=== PATIENT | male | born 1995 | race Caucasian/White ===

== ENCOUNTER 2018-09-25 13:51 | Emergency (ER) | payer OTHER ==
--- NOTE | 2018-09-25 14:01 | EDPHY ---
H & P Stated Complaint: Injury to left collerbone while skiing. Source: Patient Exam Limitations: No limitations - Personal History Current Tetanus Diphtheria and Acellular Pertussis (TDAP): Unsure - Medical/Surgical History Hx Asthma: No Hx Chronic Respiratory Disease: No Hx Diabetes: No Hx Cardiac Disease: No Hx Renal Disease: No Hx Cirrhosis: No Hx Alcoholism: No Hx HIV/AIDS: No Hx Splenectomy or Spleen Trauma: No Other PMH: Denies - Social History Smoking Status: Never smoked Time Seen by Provider: 09/25/18 13:56 HPI/ROS: HPI: This is a 22-year-old male who presents with Chief Complaint: Left shoulder/clavicle injury Location: Left shoulder/clavicle Quality: Injury Duration: 2 hr prior to arrival Signs and Symptoms: No bleeding, no radiation, no numbness, no weakness, no tingling, no incontinence, + decreased range of motion, no swelling, + pain, no fever Timing: Acute Severity: 01/21 Context: Patient is right-hand dominant, presents with complaints of falling off of a rail while snowboarding this afternoon. He reports he was wearing a helmet and did not hit his head. Denies LOC/head injury/neck pain/dizziness/ nausea/vomiting/amnesia. He reports that when he fell he landed directly onto the anterior aspect of his left shoulder. He reports that his shoulder has good range of motion but pain is increased in the left clavicle area with extension of his left arm above heart level. Patient believes that he broke his left clavicle. Patient was able to snowboard down the hill and then his friend drove him to the emergency room. [place] skin car[place] He admits to drinking alcohol and smoking marijuana joint prior to arrival with moderate relief of pain. Modifying Factors: Alcohol and marijuana with moderate relief of pain Comment: ROS: A comprehensive 10 system review of systems is otherwise negative aside from elements mentioned in the history of present illness. MEDICAL/SURGICAL/SOCIAL HISTORY: Medical history: Generally healthy. Does not take any regular medications. Surgical history: Denies Social history: Marijuana and alcohol user. Nontobacco user. CONSTITUTIONAL: Well-developed, well-nourished, young adult white male, polite and cooperative, awake and alert, no obvious distress HEENT: Atraumatic and normocephalic. NECK: supple, no midline tenderness, flexion 45 degrees, extension 45 degrees, right and left lateral flexion 45 degrees. No meningismus. Cardiovascular: Normal S1/S2, regular rate, regular rhythm, without murmur rub or gallop. PULMONARY/CHEST: Symmetrical and nontender. no crepitus. Clear to auscultation bilaterally. Good air movement. No accessory muscle usage. ABDOMEN: Soft, nondistended, nontender, no ecchymosis. PELVIC: no pain with rocking; bilateral hips flexion 125 degrees, extension 30 degrees, with no pain internal rotation and no pain external rotation. BACK: No midline tenderness, no paraspinous spasm, deep tendon reflexes 2/2, no pain with straight leg raise, No foot drop. Achilles reflexes are equal bilaterally. Able to walk on heels and toes without difficulty. EXTREMITIES: 2/2 pulses, strength 5/5, tenderness over the left mid clavicle but no tenting of skin. Left SHOULDER: Arc test abduction decreased to 100, abduction to 45, horizontal flexion decreased to 90, horizontal decreased extension to 15, deltoid strength 5/5. Mild pain with Neer test/Pal test ( impingement). Mild Tenderness to palpation over AC joint. DIP/PIP/MCP flexion/ extension intact with good light touch sensation. no deformities, no clubbing, no cyanosis or edema. NEUROLOGICAL: no focal neuro deficits. GCS 15. Light touch sensation intact. SKIN: Warm and dry, no erythema. no rash. Good capillary refill. (Aliya Kumar) Constitutional: Initial Vital Signs Temperature (C) 36.6 C 09/25/18 13:51 Heart Rate 98 09/25/18 13:51 Respiratory Rate 16 09/25/18 13:51 Blood Pressure 145/91 H 09/25/18 13:51 O2 Sat (%) 96 09/25/18 13:51 O2 Delivery Mode Room Air Allergies/Adverse Reactions: No Known Allergies Allergy (Unverified 09/25/18 13:55) Home Medications: Medication Instructions Recorded oxyCODONE/APAP 5/325 [Percocet 1 - 2 tab PO Q4H PRN #10 tab 09/25/18 5/325 (*)] Medical Decision Making Procedures: Procedure: Splint placement. A left sling was applied. After application of the splint I returned and re- examined the patient. The splint was adequately immobilizing the joint and distal to the splint the patient's circulation and sensation was intact. (Aliya Kumar) ED Course/Re-evaluation: Left shoulder and left clavicle x-ray ordered Left clavicle x-ray my read via bedside shows closed mid clavicle fracture with displacement. No shoulder dislocation or AC displacement. Placed in sling, orthopedic follow-up as will likely need need ORIF and plate placement No signs of neurovascular compromise/tenting of skin/compartment syndrome/ extremities and joints examined above and below area of concern and are neurovascularly intact. This patient was seen under the supervision of my secondary supervising physician. I evaluated care for this patient independently. (lAiya Kumar) I did not see this patient while he was in the emergency department. However his care was discussed with the PA while the patient was in the department. I agree with treatment plan and management (Bob Vasquez) Differential Diagnosis: Shoulder injury differential diagnosis includes but is not limited to clavicle fracture, contusion, AC joint separation, rotator cuff injury, labral tear, humeral head fracture, sprain, scapula fracture. (Aliya Kumar) Departure - Departure Disposition: Home, Routine, Self-Care Clinical Impression: Closed fracture of shaft of left clavicle Condition: Good Instructions: Clavicle Fracture (ED), How to Use a Sling (ED), Closed Reduction Internal Fixation of an Upper Extremity Fracture (DC) Additional Instructions: Wear the sling while out of bed except shower until seen by Orthopedics. Limit use of left upper extremity until seen by Orthopedics. Take Tylenol 650 mg every 4 hours and/or Ibuprofen 600 mg every 8 hours with food as needed for pain. Use Percocet every 6 hours as needed for severe/break through pain. Do not use Tylenol and Percocet concomitantly. Apply ice for 30 minutes at a time; 2-3 times per day for the next 1-2 days. Do not use marijuana or alcohol while taking Percocet. Follow up with Orthopedics in 5-7 days at which time they will evaluate and recommend with you if conservative management versus surgery is indicated. Referrals: Sammy Gallagher MD [Medical Doctor] - As per Instructions Prescriptions: oxyCODONE/APAP 5/325 [Percocet 5/325 (*)] 1 - 2 tab PO Q4H PRN #10 tab PRN Reason: Pain, Severe
[2018-09-25 14:02] VITALS: BP 145/91
== END 2018-09-25 14:24 | disposition home or self-care (01) ==
DX: S42.022A Displaced fracture of shaft of left clavicle, initial encounter for closed fracture (principal); V00.321A Fall from snow-skis, initial encounter; Y93.23 Activity, snow (alpine) (downhill) skiing, snowboarding, sledding, tobogganing and snow tubing; Y92.828 Other wilderness area as the place of occurrence of the external cause
CPT/HCPCS: A4565